=== PATIENT | male | born 1995 | race Caucasian/White ===

== ENCOUNTER 2019-11-05 10:17 | Emergency (ER) | payer SELFPAY ==
--- NOTE | 2019-11-05 10:19 | ED.GENADULT ---
HPI - General Adult General Chief complaint: Skin/Abscess/Foreign Body Stated complaint: Blister on Stomach Time Seen by Provider: 11/05/19 10:46 Source: patient Mode of arrival: ambulatory Limitations: no limitations History of Present Illness HPI narrative: 24-year-old male patient presents to the [facility] with complaints of a wound to the lower abdomen for the past 4 days. Patient states that has been draining some yellow drainage. Patient states he does not remember any injury to the site that he is aware of. Patient states he has been running some fevers as high as 101 yesterday. Patient states he was running about of 99 today. Related Data Home Medications Medication Instructions Recorded Confirmed No Home Medications 11/05/19 11/05/19 Allergies Allergy/AdvReac Type Severity Reaction Status Date / Time cefaclor Allergy Unknown Verified 12/04/18 14:23 Cephalosporins Allergy Unknown Verified 12/04/18 14:23 Review of Systems Review of Systems: Narrative: CONSTITUTIONAL: Denies fever, chills, or sweats. EYES: Denies visual changes, redness, or discharge. ENT: Denies rhinorrhea, congestion, sore throat, or otalgia. CARDIOVASCULAR: Denies chest pain, palpitations, or edema. RESPIRATORY: Denies cough or dyspnea. GASTROINTESTINAL: Denies abdominal pain, nausea, vomiting, or diarrhea. GENITOURINARY: Denies dysuria or hematuria. SKIN: Denies rash or itching. Positive wound to lower abdomen x4 days MUSCULOSKELETAL: Denies back pain, joint pain, or myalgia. NEUROLOGIC: Denies headache, numbness, or weakness. PSYCHIATRIC: Denies anxiety or depression. 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 There is no relevant family history pertinent to the presenting complaint. Exam Narrative: Exam Narrative: GENERAL: Well-appearing, well-nourished, and in no acute distress. HEAD: Normocephalic, atraumatic. EYES: PERRLA and EOMI. ENT: Nares clear, no rhinorrhea or epistaxis. Mucous membranes moist. NECK: Supple. No lymphadenopathy CHEST: Clear to auscultation. No respiratory distress. HEART: Regular rate and rhythm. No murmur heard. Normal peripheral pulses. ABDOMEN: Soft, nontender, nondistended, normal active bowel sounds. EXTREMITIES: Normal range of motion. No edema. SKIN: Warm, dry, no rash. Patient has an open wound noted to the lower abdomen under the umbilicus measuring approximately 1 cm x 1 cm. Patient has approximately 1.5 cm surrounding erythema it is very tender to the touch, slight warmth noted. Patient does have some drainage noted appears to be yellow pus. NEURO: No focal deficits. Alert and oriented x3. Course Vital Signs Vital signs: Vital Signs Temperature 37.7 C H 11/05/19 10:30 Pulse Rate 93 11/05/19 10:30 Respiratory Rate 18 11/05/19 10:30 Blood Pressure 140/86 11/05/19 10:30 Pulse Oximetry 100 11/05/19 10:30 Temperature 37.7 C H 11/05/19 10:30 Pulse Rate 93 11/05/19 10:30 Respiratory Rate 18 11/05/19 10:30 Blood Pressure 140/86 11/05/19 10:30 Pulse Oximetry 100 11/05/19 10:30 Vital signs reviewed. The patient has been informed that they may have pre-hypertension or Hypertension based on a BP reading in the department. I recommend that the patient call the primary care provider listed on their discharge instructions or a physician of their choice this week to arrange follow up for further evaluation of possible pre-hypertension or Hypertension Procedures Other Procedure Procedure 1: Other Procedure: Small amount of pus was expressed from the wound and used as a culture sample. Antibiotic ointment was applied to the wound and covered with 4 x 4 dressing
[2019-11-05 10:30] VITALS: BP 140/86; PULSE 93; RESP 18; TEMP 37.7; O2SAT 100
== END 2019-11-05 10:57 | disposition home or self-care (01) ==
PROVIDERS: Emergency Provider Nurse Practitioner Family
DX: L02.211 Cutaneous abscess of abdominal wall (principal); I45.6 Pre-excitation syndrome
CPT/HCPCS: 87070; 87075; 87147; 87186; 87205; 99213; G0463

== ENCOUNTER 2022-12-10 06:13 | Emergency (ER) | payer OTHER, SELFPAY ==
[2022-12-10 06:17] VITALS: BP 149/76; PULSE 73; RESP 18; TEMP 36.6; O2SAT 99
--- NOTE | 2022-12-10 07:06 | ED.SKABFB ---
HPI - Skin/Abscess/Foreign Bdy General Chief complaint: Skin/Abscess/Foreign Body Stated complaint: abcess to right leg Time Seen by Provider: 12/10/22 06:59 History of Present Illness HPI narrative: Patient is a 27-year-old male presenting with several skin infection. Patient states that for the last several days he has had an area of redness, swelling, drainage from the lateral aspect of his right calf. States that it may have started as a spider bite. 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 States that it continues to drain but he now has redness surrounding the area and she told him to come in for antibiotics. No fevers or chills, nausea or vomiting, or other systemic symptoms. 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 EYES: PERRLA and EOMI. ENT: Grossly unremarkable NECK: Supple. CHEST: No respiratory distress. HEART: Regular rate and rhythm ABDOMEN: Nondistended EXTREMITIES: Normal range of motion. No edema. SKIN: 1 cm abscess lateral right calf that is draining bloody purulent drainage; surrounding cellulitis with lymphangitic spread, no evidence of deeper infection NEURO: No focal deficits. Alert and oriented x3. PSYCH: Normal mood and affect. Course Vital Signs Vital signs: Vital Signs Temperature 97.8 F 12/10/22 06:17 Pulse Rate 73 12/10/22 06:17 Respiratory Rate 18 12/10/22 06:17 Blood Pressure 149/76 H 12/10/22 06:17 Pulse Oximetry 99 12/10/22 06:17 Oxygen Delivery Room Air 12/10/22 06:17 Temperature 97.8 F 12/10/22 06:17 Pulse Rate 73 12/10/22 06:17 Respiratory Rate 18 12/10/22 06:17 Blood Pressure 149/76 H 12/10/22 06:17 Pulse Oximetry 99 12/10/22 06:17 Oxygen Delivery Room Air 12/10/22 06:17 MDM - Skin/Abscess/Foreign Bdy MDM Narrative Medical decision making narrative: 27-year-old male presenting with an abscess on his right lower leg. Vital stable. Exam remarkable for the above. The abscess is spontaneously draining. Patient has been applying warm compresses, advised that he continue to do so. We will start him on Bactrim and discussed appropriate wound care. Advised to follow-up with primary care. Appropriate return precautions given. Discharged in stable condition peer Differential Diagnosis Differential diagnosis: Likely abscess of skin or subcutaneous tissue, cellulitis and insect bites Medical Records Attestation: I reviewed the patient's medical records. Critical Care Time Critical Care Time Critical Care Time: No Discharge Plan Discharge Clinical Impression: Abscess of skin or subcutaneous tissue, Cellulitis Patient Disposition: Home, Self-Care Condition: Stable Instructions: Antibiotic Form, Cellulitis (ED), Abscess (ED) Additional Instructions: Please continue applying warm compresses to encourage the abscess to drain. Please complete the antibiotics as prescribed. We recommend following up with PCP within 1-3 days. If your symptoms worsen, you develop chest pain, shortness of breath, numbness or weakness, vomiting, fevers >100.4F, or other concerning symptoms arise, please return to the ER. Prescriptions: New sulfamethoxazole-trimethoprim [Bactrim DS] 800-160 mg tablet 1 tablet PO Q12H 7 Days Qty: 14 0RF No
[2022-12-10] MEDS: ACETAMINOPHEN 500 MG TABLET 1000 MG PO (07:15)
[2022-12-10] MEDS: SULFAMETHOXAZOLE/TRIMETHOPRIM 800/160 MG DS TABLET 1 TAB PO (07:15)
[2022-12-10] MEDS: IBUPROFEN 400 MG TABLET 800 MG PO (07:15)
== END 2022-12-10 07:59 | disposition home or self-care (01) ==
LOC: ANHED 07:30
PROVIDERS: Emergency Provider Emergency Medicine
DX: L03.115 Cellulitis of right lower limb (principal); I45.6 Pre-excitation syndrome; H91.91 Unspecified hearing loss, right ear
CPT/HCPCS: 99283; A9270